=== PATIENT | female | born 1965 | race Caucasian/White ===

== ENCOUNTER 2020-08-11 15:25 | Outpatient (CLI) | payer BC, SELFPAY ==
--- NOTE | ~2020-08-11 | MM_ITS ---
EXAMINATION: MM screening carlitos BI w vinay HISTORY: Screening TECHNIQUE: Craniocaudal and mediolateral oblique 3-D tomosynthesis images were obtained and synthetic 2-D images were generated. CAD analysis was submitted and interpreted. COMPARISON: Comparison to multiple prior studies sequentially, with oldest reviewed study dated 09/09. BREAST PARENCHYMAL COMPOSITION: There are scattered areas of fibroglandular density. FINDINGS: There is no evidence of suspicious mass, calcification, or architectural distortion to sugg est malignancy in either breast. There has been no suspicious interval change. IMPRESSION: 1. No mammographic evidence of malignancy. 2. Recommend routine screening mammography in one year. BI-RADS Category 1: Negative Reviewed, dictated and finalized at location A. CAL CLERICAL ASSISTANT
== END 2020-08-11 15:26 | disposition home or self-care (01) ==
PROVIDERS: PCP Family Medicine
DX: Z12.31 Encounter for screening mammogram for malignant neoplasm of breast (principal)
CPT/HCPCS: 77063; 77067

== ENCOUNTER 2020-08-22 00:53 | Outpatient (CLI) | payer BC, SELFPAY ==
[2020-08-22 21:18] LABS: SARS-CoV-2 RNA PCR Negative
== END 2020-08-22 00:54 | disposition home or self-care (01) ==
LOC: ANHCOVIDDT 00:53
PROVIDERS: PCP Family Medicine; Visit Provider Internal Medicine Gastroenterology
DX: Z01.812 Encounter for preprocedural laboratory examination (principal); Z20.828 Contact with and (suspected) exposure to other viral communicable diseases
CPT/HCPCS: 87635; C9803; U0003

== ENCOUNTER 2020-08-25 01:06 | Day surgery (SDC) | payer BC, SELFPAY ==
[2020-08-19 13:05] VITALS: BMI 42.0
--- NOTE | 2020-08-24 11:47 | P.PNAN_ITS ---
Anes - Initial Pre Proc Eval Procedure: Operation Date: 08/25/20 07:30 Proposed Procedures p Screening Colonoscopy - Watson Pablo MD Date/Time: 08/24/20 11:47 Surgeon: Watson Pablo MD Pre Op Diagnosis: neoplasm screening Patient Data Age: 55 Gender: F Height: 1.68 m Weight: 118 kg Allergies Allergy/AdvReac Type Severity Reaction Status Date / Time codeine AdvReac Nausea Verified 08/25/20 06:23 Home Medications Medication Instructions Recorded Confirmed Type levothyroxine 112 mcg PO DAILY 08/19/20 08/19/20 History Patient hx anesthesia problems: none Family hx anesthesia problems: none [facility] Past Medical History Medical History (Updated 08/24/20 @ 11:47 by Norbert Moe DO) Hypothyroidism Surgical History Surgical History (Updated 08/24/20 @ 11:47 by Norbert Moe DO) History of tubal ligation Social History Social History Smoking status: Never smoker Alcohol intake: never Substance use type: does not use Living arrangements: with family Gender identity (if verbalized by the patient): Female Spiritual care concerns: No Anes - Eval Final PreProcedure Day of Procedure 08/24/20 11:47 Patient weight: morbidly obese Heart: regular rate and rhythm Lungs: clear to auscultation and normal air movement Airway: Mallampati scale class II Neurological: alert and oriented Last oral intake: >/= 8 hours ASA classification: III Emergent: no Anesthetic plan: proceed Anesthesia type and monitoring: general GIVS and standard monitoring Informed Consent: The patient's anesthetic plan and its attendant risks and benefits were discussed with the patient/family/POA. Questions were solicited and answers provided to the satisfaction of the patient/family/POA.
[2020-08-25 06:25] VITALS: BP 136/78; PULSE 84; RESP 20; TEMP 36.5; O2SAT 97; BMI 41.6
[2020-08-25] MEDS: LACTATED RINGERS 1,000 ML 150 ML IV CONT (06:39)
--- NOTE | 2020-08-25 07:47 | P.CONGI_ITS ---
Assessment and Plan Assessment and plan (1) Encounter for screening colonoscopy: Code(s): Z12.11 - Encounter for screening for malignant neoplasm of colon Status: Acute Assessment and Plan: Patient has never had a colonoscopy. She presents for screening colonoscopy today. Because of her tendency to constipation fiber supplement such as Metamucil is advised. GI Consult Note Consult date/time: 08/25/20 07:47 HPI: Yani Singh is a 55 year old female Presents for screening col onoscopy. Patient followed by Dr. Hall. Patient denies any bleeding. She reports a tendency to constipation. She has had no blood in her stools are appetite and weight have remained stable. Family history is noncontributory. Review of Systems Review of Systems: All systems reviewed & are unremarkable except as noted in HPI and below PMFSH Past Medical History Medical History (Updated 08/25/20 @ 07:48 by Watson Pablo MD) Hypothyroidism Surgical History Surgical History (Updated 08/24/20 @ 11:47 by Norbert Moe DO) History of tubal ligation Social History Social History Smoking status: Never smoker Alcohol intake: never Substance use type: does not use Living arrangements: with family Gender identity (if verbalized by the patient): Female Spiritual care concerns: No Meds Home Medications and Allergies Home Medications Medication Instructions Recorded Confirmed Type levothyroxine 112 mcg PO DAILY 08/19/20 08/19/20 History Allergies Allergy/AdvReac Type Severity Reaction Status Date / Time codeine AdvReac Nausea Verified 08/25/20 06:23 Vital Signs Vital Signs - 24 hr 08/25/20 06:25 Temperature 97.7 F Pulse Rate 84 Respiratory Rate 20 Blood Pressure 136/78 Pulse Oximetry 97 Exam Narrative: Exam Narrative: Physical exam reveals patient to be alert. Vital signs stable. HEENT exam unremarkable. Patient is anicteric. Lungs are clear to auscultation and percussion. Heart is without murmur or extra sounds. Abdominal exam bowel sounds are present soft nontender with no organomegaly. Digital external rectal exam is normal.
[2020-08-25 07:51] VITALS: BP 100/60; PULSE 67; RESP 22; O2SAT 98
[2020-08-25 08:01] VITALS: BP 115/76; PULSE 69; RESP 24; O2SAT 100
[2020-08-25 08:11] VITALS: BP 123/77; PULSE 63; RESP 20; O2SAT 100
== END 2020-08-25 08:28 | disposition home or self-care (01) ==
PROVIDERS: PCP Family Medicine; Visit Provider Internal Medicine Gastroenterology
PROC: 0DJD8ZZ Inspection of Lower Intestinal Tract, Via Natural or Artificial Opening Endoscopic (ICD-10-PCS; CPT 45378; principal; 2020-08-25 07:30)
DX: Z12.11 Encounter for screening for malignant neoplasm of colon (principal); K64.8 Other hemorrhoids; E03.9 Hypothyroidism, unspecified; E66.01 Morbid (severe) obesity due to excess calories; Z68.41 Body mass index [BMI] 40.0-44.9, adult
CPT/HCPCS: 45378; J2704; J7120

== ENCOUNTER 2021-07-04 11:29 | Emergency (ER) | payer BC, SELFPAY ==
[2021-07-04] VITALS (13 sets, daily range): BP systolic 106–140; BP diastolic 67–81; PULSE 58–74; RESP 12–23; TEMP 37; O2SAT 62–100
--- NOTE | ~2021-07-04 | US_ITS ---
EXAMINATION: US pelvic complete w TV EXAM DATE: 07/04/2021 13:33 INDICATION: Abnormal uterine bleeding. TECHNIQUE: Pelvic transabdominal and transvaginal sonogram was performed. There are multiple graysca le and Doppler images available for interpretation. There is no prior study for comparison. FINDINGS: Uterus measures 7.4 x 4.9 x 4.0 cm, and is morphologically normal. Endometrial stripe fay sures 5 mm, within normal limits. There is a nabothian cyst. There is no free pelvic fluid. Right adnexa: The ovary measures 2.2 x 1.8 x 1.3 cm and is morphologically normal. Ovarian vascular f low confirmed. Left adnexa: The ovary measures 2.2 x 1.5 x 1.2 cm and is morphologically normal. Ovarian vascular fl ow confirmed. IMPRESSION: Unremarkable pelvic ultrasound exam. Reviewed, dictated and finalized at location A.
[2021-07-04 11:54] LABS: Basophils Percent Auto 0.5 % (0.2-1.2); Eosinophils Absolute Auto 0.1 K/mm3 (0-0.3); Eosinophils Percent Auto 0.7 % (0-4.4); Hematocrit 39.2 % (37.0-47.0); Hemoglobin 12.6 g/dL (12.0-15.0); Immature Granulocyte Absolute 0.02 K/mm3 (0.00-0.031); Immature Granulocyte Percent A 0.2 % (0-0.5); Lymphocytes Absolute Auto 1.83 K/mm3 (0.9-3.2); Lymphocytes Percent Auto 20.9 % (18.3-44.2); Mean Corpuscular HGB Conc 32.1 g/dl (32-36); Mean Corpuscular Hemoglobin 30.1 pg (26-34); Mean Corpuscular Volume 93.6 fl (80-100); Mean Platelet Volume 10.3 fl (7.4-10.4); Monocytes Absolute Auto 0.7 K/mm3 (0.1-0.6); Monocytes Percent Auto 7.4 % (2.6-8.5); Neutrophils Absolute Auto 6.2 K/mm3 (1.3-6.7); Neutrophils Percent Auto 70.3 % (45.5-73.1); Platelet Count Result 248 k/mm3 (150-375); Red Blood Count 4.19 M/mm3 (4.2-5.4); Red Cell Distribution Width 14.7 % (11.5-14.5); White Blood Count 8.8 K/mm3 (4.5-10.0)
[2021-07-04 12:05] LABS: Alanine Aminotransferase 14 U/L (4-35); Albumin Level 4.7 g/dL (3.5-5.1); Alkaline Phosphatase 88 U/L (38-126); Anion Gap 11 mmol/L (8-16); Aspartate Amino Transferase 29 U/L (14-36); Blood Urea Nitrogen 14 mg/dL (7-17); Calcium 9.8 mg/dL (8.4-10.2); Carbon Dioxide 25 mmol/L (22-30); Chloride 105 mmol/L (98-107); Estimated CRCL calculation 65 ml/min; Estimated Glomerular Filt Rate > 60; Glucose 91 mg/dL (65-110); Potassium 4.5 mmol/L (3.4-5.0); Sodium 141 mmol/L (137-145)
--- NOTE | 2021-07-04 12:31 | ED.FEMALEGU ---
HPI - Female Genitourinary General Chief complaint: Vaginal Bleeding <FRIDA Carroll Last Filed: 07/04/21 15:24> Stated complaint: vaginal bleeding <FRIDA Carroll Last Filed: 07/04/21 15:24> Time Seen by Provider: 07/04/21 12:09 <FRIDA Carroll Last Filed: 07/04/21 15:24> Source: patient <FRIDA Carroll Last Filed: 07/04/21 15:24> Mode of arrival: ambulatory <FRIDA Carroll Last Filed: 07/04/21 15:24> Limitations: no limitations <FRIDA Carroll Last Filed: 07/04/21 15:24> History of Present Illness HPI Narrative: This is a 56-year-old female that presents to the emergency department for abnormal uterine bleeding. Reports she is currently in menopause. She has not had a menstrual cycle in 3 years. Today she was at the grocery store and suddenly felt a gush of blood go down her leg. Denies fever, dysuria, or pelvic cramping. <FRIDA Carroll Last Filed: 07/04/21 15:24> Related Data Home medications: Home Medications Medication Instructions Recorded Confirmed cholecalciferol (vitamin D3) 125 125 mcg PO DAILY 01/26/21 mcg (5,000 unit) capsule <FRIDA Carroll Last Filed: 07/04/21 15:24> Allergies/Adverse reactions: Allergies Allergy/AdvReac Type Severity Reaction Status Date / Time codeine AdvReac Severe Nausea Verified 01/20/21 12:36 <FRIDA Carroll Last Filed: 07/04/21 15:24> Review of Systems Review of Systems: CONSTITUTIONAL: Denies fever GASTROINTESTINAL: Denies abdominal pain, nausea, vomiting <FRIDA Carroll Last Filed: 07/04/21 15:24> All systems reviewed & are unremarkable except as noted in HPI and below <FRIDA Carroll Last Filed: 07/04/21 15:24> PMFSH Past Medical History Medical History: Medical History (Updated 07/04/21 @ 15:23 by Carmita Bustillo PA-C) Hypothyroidism <Carmita Bustillo PA-C - Last Filed: 07/04/21 15:24> Surgical History Surgical History: Surgical History (Updated 08/24/20 @ 11:47 by Norbert Moe DO) History of tubal ligation <Carmita Bustillo PA-C - Last Filed: 07/04/21 15:24> Family History Family History: Family History (Updated 01/20/21 @ 12:44 by Kait Little MA) Father Diabetes mellitus Daughter Asthma Daughter Depression Anxiety <Carmita Bustillo PA-C - Last Filed: 07/04/21 15:24> Social History Social History: Social History (Updated 01/20/21 @ 12:41 by Kait Little MA) Smoking status: Never smoker Second hand tobacco smoke exposure: No Alcohol intake: never Substance use type: does not use Gender identity (if verbalized by the patient): Female Spiritual care concerns: No <Carmita Bustillo PA-C - Last Filed: 07/04/21 15:24> Exam Narrative: GENERAL: Well-appearing, well-nourished, and in no acute distress. HEAD: Normocephalic, atraumatic. EYES: EOMI. CHEST: Clear to auscultation. No respiratory distress. No wheezes rales or rhonchi HEART: Regular rate and rhythm. No murmur heard. Normal peripheral pulses. ABDOMEN: Soft, nondistended EXTREMITIES: Normal range of motion. No edema. SKIN: Warm, dry, no rash. NEURO: No focal deficits. Alert and oriented x3. PSYCH: Normal mood and affect PELVIC: No active bleeding. Small (1cm) polyp-like lesion of the cervical os noted <Carmita Bustillo PA-C - Last Filed: 07/04/21 15:24> Course AIRPLANE TUBE BUILDER/PA Physician Supervision I did not see this patient nor was the care plan discussed with me. I was available for evaluation and consultation, I agree with the documentation as above <Abraham Saavedra MD - Last Filed: 09/26/21 17:27> Consultations Consultation #1: Spoke with Dr. Larsen about patient and workup who would like patient to call in the morning to see him in clinic tomorrow. <Carmita Bustillo PA-C - Last Filed: 07/04/21 15:24> Date: 07/04/21 <Carmita Bustillo PA-C - Last Brenden
== END 2021-07-04 15:37 | disposition home or self-care (01) ==
PROVIDERS: Emergency Provider Emergency Medicine; PCP Internal Medicine
DX: N93.9 Abnormal uterine and vaginal bleeding, unspecified (principal); E03.9 Hypothyroidism, unspecified; Z98.51 Tubal ligation status
CPT/HCPCS: 36415; 76830; 76856; 80053; 85025; 86850; 86900; 86901; 99284

== ENCOUNTER 2021-07-04 17:40 | Emergency (ER) | payer BC, SELFPAY ==
[2021-07-04 18:26] VITALS: BP 121/72; PULSE 78; RESP 16; TEMP 37.1; O2SAT 99
[2021-07-04 18:45] LABS: Basophils Percent Auto 0.5 % (0.2-1.2); Eosinophils Absolute Auto 0.1 K/mm3 (0-0.3); Eosinophils Percent Auto 0.8 % (0-4.4); Hematocrit 38.1 % (37.0-47.0); Hemoglobin 12.2 g/dL (12.0-15.0); Immature Granulocyte Absolute 0.01 K/mm3 (0.00-0.031); Immature Granulocyte Percent A 0.1 % (0-0.5); Lymphocytes Absolute Auto 2.11 K/mm3 (0.9-3.2); Lymphocytes Percent Auto 27.8 % (18.3-44.2); Mean Corpuscular Hemoglobin 29.8 pg (26-34); Mean Corpuscular Volume 92.9 fl (80-100); Monocytes Absolute Auto 0.6 K/mm3 (0.1-0.6); Monocytes Percent Auto 7.4 % (2.6-8.5); Neutrophils Absolute Auto 4.8 K/mm3 (1.3-6.7); Neutrophils Percent Auto 63.4 % (45.5-73.1); Platelet Count Result 242 k/mm3 (150-375); Red Cell Distribution Width 14.6 % (11.5-14.5); White Blood Count 7.6 K/mm3 (4.5-10.0)
[2021-07-04 20:47] LABS: Prothrombin Time 13.2 Seconds (11.1-14.7)
[2021-07-04 22:55] VITALS: BP 130/81; PULSE 61; RESP 16; O2SAT 100
[2021-07-05 00:37] VITALS: BP 125/69; PULSE 57; RESP 13; O2SAT 100
--- NOTE | 2021-07-05 01:07 | ED.GENADULT ---
HPI - General Adult General Chief complaint: Vaginal Bleeding Stated complaint: recently discharged, bleeding again Time Seen by Provider: 07/04/21 23:46 History of Present Illness HPI narrative: Patient is a 56-year-old female who presents ER with bleeding from her vagina. More specifically her left labia. Patient was seen earlier in the day for vaginal bleeding and had a pelvic exam and ultrasound. She was discharged home with follow-up with her campaign director. Mobility Engineer wanted her to keep a tampon in her vagina to saturate any bleeding and he would see her in clinic tomorrow. While she is in the shower cleaning herself up she started bleeding again and she notices actually coming from the external portion of her vagina. Bleeding controlled at this time. No loss of consciousness. She is not on any blood thinners. Related Data Home Medications Medication Instructions Recorded Confirmed cholecalciferol (vitamin D3) 125 125 mcg PO DAILY 01/26/21 mcg (5,000 unit) capsule Allergies Allergy/AdvReac Type Severity Reaction Status Date / Time codeine AdvReac Severe Nausea Verified 01/20/21 12:36 Review of Systems Review of Systems: All systems reviewed & are unremarkable except as noted in HPI and below Constitutional: Constitutional: Denies chills, Denies fever(s) and Denies weakness Genitourinary: Genitourinary: Denies abnormal vaginal bleeding, Denies pelvic pain and Denies vaginal discharge Integumentary/Breasts: Skin/Breast: Denies rash Comments: Bleeding varicose vein. PMFSH Past Medical History Medical History (Updated 07/05/21 @ 01:11 by Anival Faust MD) Hypothyroidism Surgical History Surgical History (Updated 08/24/20 @ 11:47 by Norbert Moe DO) History of tubal ligation Family History Family History (Updated 01/20/21 @ 12:44 by Kait Little MA) Father Diabetes mellitus Daughter Asthma Daughter Depression Anxiety Social History Social History (Updated 01/20/21 @ 12:41 by Kait Little MA) Smoking status: Never smoker Second hand tobacco smoke exposure: No Alcohol intake: never Substance use type: does not use Gender identity (if verbalized by the patient): Female Spiritual care concerns: No Exam Narrative: GENERAL: Well-appearing, well-nourished, and in no acute distress. HEAD: Normocephalic, atraumatic. : Normal external genitalia without rash. Left labia does have a small area of previous bleeding that appears to be varicose vein. It is dark in clotting at this time. EXTREMITIES: Normal range of motion. No edema. SKIN: Warm, dry, no rash. NEURO: Alert and oriented x3. PSYCH: Normal mood and affect. Course Course Emergency Course: Pursestring suture placed around the area of bleeding to help with additional tamponade and prevent recurrence. Follow-up with her INTERMEDIATE FRAME TENDER tomorrow. Vital Signs Vital signs: Vital Signs Temperature 98.8 F 07/04/21 18:26 Pulse Rate 78 07/04/21 18:26 Respiratory Rate 16 07/04/21 18:26 Blood Pressure 121/72 07/04/21 18:26 Pulse Oximetry 99 07/04/21 18:26 Temperature 98.8 F 07/04/21 18:26 Pulse Rate 57 L 07/05/21 00:37 Respiratory Rate 13 07/05/21 00:37 Blood Pressure 125/69 07/05/21 00:37 Pulse Oximetry 100 07/05/21 00:37 Procedures Laceration Laceration 1: Date: 07/05/21 Time: 01:00 Site: other (Left labia) Description: other (Site of varicose vein bleed) Local Anesthetic: lidocaine 1% and with epi Amount of anesthesia used (mL): 2 ====== Skin Level ====== Skin layer closed with: prolene Size (cm): 4-0 Number of sutures: 1 Technique: other (Purse string) ====== Subcutaneous Layer ====== ====== Muscle Layer ====== ====== Tendon Layer ====== Medical Decision Making Vital Signs Vital Signs: Vital Signs Temperature 98.8 F 07/04/21 18:26 Pulse Rate 78 07/04/21 18
[2021-07-05] MEDS: LIDO 1%/EPINEPHRINE 1:100,000 20 ML VIAL (01:13)
== END 2021-07-05 02:08 | disposition home or self-care (01) ==
PROVIDERS: Physician Assistant; Emergency Provider Emergency Medicine; PCP Internal Medicine
DX: I86.3 Vulval varices (principal); E03.9 Hypothyroidism, unspecified; Z98.51 Tubal ligation status
CPT/HCPCS: 12001; 36415; 85025; 85610; 85730; 99283

== ENCOUNTER 2021-09-24 15:04 | Outpatient (CLI) | payer BC, SELFPAY ==
--- NOTE | ~2021-09-24 | MM_ITS ---
EXAMINATION: MM screening carlitos BI w vinay HISTORY: Screening TECHNIQUE: Craniocaudal and mediolateral oblique 3-D tomosynthesis images were obtained and synthetic 2-D images were generated. CAD analysis was submitted and interpreted. COMPARISON: Comparison to multiple prior studies sequentially, with oldest reviewed study dated 11/01. BREAST PARENCHYMAL COMPOSITION: There are scattered areas of fibroglandular density. FINDINGS: There is no evidence of suspicious mass, calcification, or architectural distortion to sugg est malignancy in either breast. There has been no suspicious interval change. IMPRESSION: 1. No mammographic evidence of malignancy. 2. Recommend routine screening mammography in one year. BI-RADS Category 1: Negative Reviewed, dictated and finalized at location A. CHING MACHINE SETTER
== END 2021-09-24 15:05 | disposition home or self-care (01) ==
PROVIDERS: PCP Internal Medicine; Visit Provider Obstetrics & Gynecology
DX: Z12.31 Encounter for screening mammogram for malignant neoplasm of breast (principal)
CPT/HCPCS: 77063; 77067

== ENCOUNTER 2022-09-26 15:08 | Outpatient (CLI) | payer BC, SELFPAY ==
--- NOTE | ~2022-09-26 | US_ITS ---
Limited Abdominal Sonogram: Real-time sonographic imaging of the right upper quadrant was performed. Clinical History: Right upper quadrant pain Findings: The liver appears normal with no evidence of mass lesion or bile duct dilatation. Main por wilfredo vein demonstrates normal direction of flow. The gallbladder is partially distended, with small ga llstone present. The common bile duct measures 6 mm. The visualized pancreas, aorta, and IVC are unr emarkable. Impression: Cholelithiasis. Reviewed, dictated and finalized at location M. ANICAL DESIGN ENGINEER FACILITIES Impression: Cholelithiasis.
== END 2022-09-26 15:09 | disposition home or self-care (01) ==
PROVIDERS: PCP Internal Medicine; Visit Provider Internal Medicine
DX: R10.11 Right upper quadrant pain (principal); K80.20 Calculus of gallbladder without cholecystitis without obstruction
CPT/HCPCS: 76705

== ENCOUNTER 2022-10-28 15:23 | Outpatient (CLI) | payer BC, SELFPAY ==
--- NOTE | 2022-10-28 15:26 | ECG_ITS ---
Measurements Intervals [place] Rate: 68 P: 40 AR: 149 QRS: -7 QRSD: 87 T: 14 QT: 378 QTc: 403 Interpretive Statements SINUS RHYTHM DELAYED PRECORDIAL R/S TRANSITION BASELINE ARTIFACT- I, II, III, AVR, AVL, AVF, V1-V6 BORDERLINE ECG NO PREVIOUS ECG AVAILABLE FOR COMPARISON Electronically Signed On 10-28-2022 16:04:18 STUDENT DEVELOPMENT SPECIALIST by Noah Anand D.O.
[2022-10-28 16:24] LABS: Alanine Aminotransferase 17 U/L (6-35); Albumin Level 4.1 g/dL (3.5-5.1); Alkaline Phosphatase 76 U/L (38-126); Amylase 43 U/L (30-110); Aspartate Amino Transferase 21 U/L (14-36); Bilirubin,Total 0.6 mg/dL (0.2-1.3); Lipase 97 U/L (23-300)
== END 2022-10-28 15:24 | disposition home or self-care (01) ==
PROVIDERS: PCP Internal Medicine; Visit Provider Surgery
DX: K80.20 Calculus of gallbladder without cholecystitis without obstruction (principal); Z01.818 Encounter for other preprocedural examination; R94.31 Abnormal electrocardiogram [ECG] [EKG]
CPT/HCPCS: 36415; 80076; 82150; 83690; 86850; 86900; 86901; 93005

== ENCOUNTER 2022-11-04 03:34 | Day surgery (SDC) | payer BC, SELFPAY ==
[2022-10-27 10:58] VITALS: BMI 32.3
--- NOTE | 2022-10-27 11:04 | PC.NURSE ---
Report to the Outpatient Waiting Room, entrance under the green pavilion located off [facility], at time 11:30 on date 11/04/22. Planned Procedure Time: 1:30. Time changes happen often and if your time is changed the preop area will call you the afternoon before. - You and your visitor will be asked to self-screen and do not enter if you have any COVID symptoms. - Only one visitor is requested with a max of two and NO children visitors are allowed at this time. - The patient visitor may be requested to leave or wait in car when not with patient due to distancing restrictions. - A mask is optional within the hospital. Patients may have clear liquids (water, carbonated beverages, clear teas, apple juice) until 3 hours prior to surgery (10:30) with a maximum of 20 ounces. - No food from midnight until time of surgery Take the following medications with a SIP of water the morning of surgery: LEVOTHYROXINE Medications to discontinue per physician: VITAMINS Date to take last dose: 10/31/22 Please no make-up, nail serbian, hairspray, perfume, deodorant, or body powder the day of surgery. No jewelry (including any body piercings) or valuables the day of surgery, leave them at home. Please take a shower or bath the night before, or the morning of, surgery with an antibacterial soap (HIBICLENS). Wear comfortable, loose fitting clothing. - Jewelry must be removed prior to entering the operating room. Rings and piercings that are not removed may be cut off. - The hospital will not accept responsibility for valuables. - Please leave all valuables, including medications, at home the day of surgery. If you are going home after surgery, a licensed parts delivery driver must drive you home. - NO public transportation without another adult if you receive anesthesia. - We recommend that an adult stay with you for 24 hours following discharge. - We also recommend that you do not drive, make important decision, drink alcoholic beverages, or take any drugs that were not prescribed by your health care provider for at least 24 hours after your discharge time. Follow any additional instructions given to you from your surgeon. If you or anyone in your household have experienced Covid symptoms in the past week, please notify your surgeon or the nurse liaison at the phone number below for possible testing. Telephone instructions given to PT - ALLEGRA GARCIA and asked if any additional questions and then verbalized understanding. Patient advised to call surgeon office or pre surgery nurse liaison [phone] if any additional questions.
--- NOTE | 2022-11-03 13:55 | P.PNAN_ITS ---
Anes - Initial Pre Proc Eval Procedure: Operation Date: 11/04/22 13:30 Proposed Procedures p Laparoscopic Cholecystectomy, Possible Open - Kevin Fontanez DO Date/Time: 11/03/22 13:55 Surgeon: Kevin Fontanez DO Pre Op Diagnosis: Symptomatic Cholelithiasis Patient Data Age: 57 Gender: F Height: 1.68 m Weight: 90.72 kg Allergies Allergy/AdvReac Type Severity Reaction Status Date / Time codeine AdvReac Severe Nausea Verified 11/04/22 12:45 Home Medications Medication Instructions Recorded Confirmed Type cholecalciferol (vitamin D3) 125 125 mcg PO DAILY 01/26/21 11/04/22 History mcg (5,000 unit) capsule levothyroxine 100 mcg tablet 100 mcg PO DAILY #90 tabs 08/16/22 11/04/22 Rx Patient hx anesthesia problems: none Family hx anesthesia problems: none Results Review: All pre-operative results and documents have been reviewed as part of the pre- operative evaluation. PMFSH Past Medical History Medical History (Updated 11/03/22 @ 13:56 by Douglas Cee MD) Hypothyroidism Obesity Surgical History Surgical History (Updated 10/04/22 @ 10:04 by Jennifer Cee) H/O knee surgery History of endometrial ablation History of tubal ligation Scapular fracture Family History Family History Father Diabetes mellitus Daughter Asthma Daughter Depression Anxiety Unknown Heart disease Unknown Cancer Social History Social History (Updated 10/04/22 @ 10:05 by Jennifer Cee) Social History: caffeine use: Dr Ramos occasionally Smoking status: Never smoker Second hand tobacco smoke exposure: No Alcohol intake: never Substance use: never Substance use type: does not use Lack of Transportation: No Lack of Food: Never True Current Housing: I Have Housing Concerned About Future Housing: No Difficulty Paying Gas/Electric Bills: No Difficulty Paying for Meds: No Currently Unemployed: No Education: High School Diploma/GED Difficulty w/ Childcare or Family Care: No Living arrangements: with family Occupation/Education: other 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 Informed Consent: The patient's anesthetic plan and its attendant risks and benefits were discussed with the patient/family/POA. Questions were solicited and answers provided to the satisfaction of the patient/family/POA.
[2022-11-04] VITALS (9 sets, daily range): BP systolic 93–136; BP diastolic 54–75; PULSE 50–78; RESP 14–18; TEMP 36.6–37.2; O2SAT 96–100
--- NOTE | 2022-11-04 12:36 | SUR.PREOP ---
PATIENT UPDATED ON TIME DELAY
[2022-11-04] MEDS: LACTATED RINGERS 1,000 ML 30 ML IV CONT (12:55)
[2022-11-04] MEDS: ACETAMINOPHEN 500 MG TABLET 1000 MG PO (12:56)
[2022-11-04] MEDS: KETOROLAC 15 MG/ML VIAL (*BKC) IV PUSH (12:57)
[2022-11-04] MEDS: SCOPOLAMINE 1.5 MG PATCH TRANSDERM (13:16)
--- NOTE | 2022-11-04 14:03 | WPDHPUPDATE1 ---
History and Physical Update Update Date/Time: 11/04/22 14:03 History and Physical has been reviewed, including an updated exam of the patient. There are NO changes in the patient's condition. Risks, benefits, and alternatives have been discussed and questions answered. Patient agrees to proceed with procedure.
--- NOTE | 2022-11-04 14:03 | PM.IMHP ---
H&P: HPI History of Present Illness Date/Time: 11/04/22 14:04 Chief Complaint: Symptomatic cholelithiasis Narrative: This is a 57-year-old woman who presents for laparoscopic cholecystectomy. She denies any changes since last seen in the office. Review of Systems Review of Systems: All systems reviewed & are unremarkable except as noted in HPI and below Constitutional: Constitutional: Denies chills, Denies fever(s), Denies headache(s) and Denies weight loss Eyes: Eyes: Denies change in vision ENT: Denies dizziness, Denies headache(s), Denies neck mass and Denies throat swelling Cardiovascular: Cardiovascular: Denies chest pain, Denies lightheadedness and Denies dyspnea Respiratory: Respiratory: Denies cough, Denies dyspnea and Denies wheezing Gastrointestinal: Gastrointestinal: Denies abdominal pain, Denies change in bowel habits, Denies nausea and Denies vomiting Genitourinary: Genitourinary: Denies hematuria and Denies dysuria Musculoskeletal: Musculoskeletal: Reports as per HPI Integumentary/Breasts: Skin/Breast: Reports as per HPI Neurologic: Denies dizziness and Denies headache(s) Allergic/Immunologic: Allergic/Immunologic: Denies throat swelling and Denies wheezing PMFSH Past Medical History Medical History (Updated 11/03/22 @ 13:56 by Douglas Cee MD) Hypothyroidism Obesity Surgical History Surgical History (Updated 10/04/22 @ 10:04 by Jennifer Cee) H/O knee surgery History of endometrial ablation History of tubal ligation Scapular fracture Family History Family History Father Diabetes mellitus Daughter Asthma Daughter Depression Anxiety Unknown Heart disease Unknown Cancer Social History Social History (Updated 10/04/22 @ 10:05 by Jennifer Cee) Social History: caffeine use: Dr Ramos occasionally Smoking status: Never smoker Second hand tobacco smoke exposure: No Alcohol intake: never Substance use: never Substance use type: does not use Lack of Transportation: No Lack of Food: Never True Current Housing: I Have Housing Concerned About Future Housing: No Difficulty Paying Gas/Electric Bills: No Difficulty Paying for Meds: No Currently Unemployed: No Education: High School Diploma/GED Difficulty w/ Childcare or Family Care: No Living arrangements: with family Occupation/Education: other 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 Gender identity (if verbalized by the patient): Female Spiritual care concerns: No Meds Home Medications and Allergies Home Medications Medication Instructions Recorded Confirmed Type cholecalciferol (vitamin D3) 125 125 mcg PO DAILY 01/26/21 11/04/22 History mcg (5,000 unit) capsule levothyroxine 100 mcg tablet 100 mcg PO DAILY #90 tabs 08/16/22 11/04/22 Rx Allergies Allergy/AdvReac Type Severity Reaction Status Date / Time codeine AdvReac Severe Nausea Verified 11/04/22 12:45 Vital Signs Vital Signs - 24 hr 11/04/22 11:50 Temperature 37.2 C Pulse Rate 77 Respiratory Rate 14 Blood Pressure 116/74 Pulse Oximetry 99 Oxygen Delivery Room Air Exam Const: General: no acute distress and alert Orientation/consciousness: patient oriented x3 HENMT: Head: normocephalic and atraumatic Ears: hearing grossly normal bilaterally Face/Nose/Sinus: Normal nares present Mouth: Yes Normal oral and palatal mucosa present Eyes: Periorbital: periorbital findings normal Sclera: sclerae normal EOM: EOMs intact bilaterally Neck: Neck: normal visual inspection, no lymphadenopathy and trachea midline Chest: Chest palpation & inspection: normal inspection of the chest Resp: Effort & Inspection: normal respiratory effort Auscultation: clear to auscultation bilaterally Cardio: Jugular venous distension: no JVD Rate: regular rate Rhythm: regular rhythm Heart sounds: S1 normal heart sound present and S2 norm
[2022-11-04] MEDS: ceFAZolin 2 GM/D5W 50 ML 2 GM/50 ML BAG IVPB (14:19)
[2022-11-04] MEDS: BUPIVACAINE/EPINEPHRINE 0.5% 30 ML VIAL INFILTRATE (14:47)
--- NOTE | 2022-11-04 15:10 | W.PM.PROC2 ---
Procedure Note - Detailed Date of Procedure 11/04/22 Pre-op Diagnosis Symptomatic Cholelithiasis Post-op Diagnosis Same Procedure Performed Laparoscopic Cholecystectomy Surgeon Kevin Fontanez, DO Anesthesia General and Local (0.5% bupivacaine) Indications This is a 57-year-old woman has been experiencing right upper quadrant abdominal pains for the past month. She had ultrasound of her gallbladder performed on 09/26/2022 which showed evidence of cholelithiasis without any signs of cholecystitis. She was seen in the office and discussions were made with the patient about treatment options. Decision was made to proceed with laparoscopic cholecystectomy, possible open. Findings Laparoscopic cholecystectomy was performed. Gallbladder was slightly dilated and elongated and had a few pericholecystic adhesions. The cystic duct appeared normal in size. No other abnormalities were noted. The gallbladder was removed and sent to the lab for pathology. Description of Procedure Procedure as well as risks, benefits, and alternatives were discussed with patient. Written consent was obtained and placed in chart prior to procedure. The patient was brought back to surgical suite. Patient was placed in supine position on operating table. Time-out was done to confirm patient and procedure. Patient was then intubated by the anesthesia department. Abdomen was prepped and draped in sterile fashion using chlorhexidine prep. 0.5% bupivacaine with epinephrine was infiltrated at each site of incision. A 5 millimeter incision was made near the umbilicus, and a 5 millimeter Optiview trocar was advanced through the abdominal layers under direct visualization. Once inside the abdominal cavity, carbon dioxide was insufflated to create a pneumoperitoneum. The camera was inserted and the abdomen was inspected. No immediate abnormalities were identified. The patient was placed in reverse Trendelenburg position and rotated slightly to the left. An 11 millimeter incision was made in the subxiphoid region, and an 11 millimeter trocar was inserted under direct visualization. Two 5 millimeter incisions were made in the right upper quadrant, and two 5 millimeter trocars were inserted under direct visualization. The gallbladder was identified and grasped at the fundus and retracted superiorly. It was then grasped at the infundibulum retracted laterally. Careful dissection around the neck of the gallbladder was performed using blunt dissection with a [place] grasper and hook electrocautery. The cystic duct was identified, and a window was created behind it. The cystic artery was also identified and a window was created behind it. The critical view of safety was identified, visualizing the cystic duct running directly into the neck of the gallbladder, and the cystic artery running directly into the wall of the gallbladder. A 5 millimeter clip renewable energy trader was then used to place 2 clips proximally and 1 clip distally on both the cystic duct and cystic artery. They were then both transected using endoscopic scissors. Once safely away from the bradly hepatitis, the gallbladder was dissected free from the liver bed using hook electrocautery. Hemostasis was achieved along the way. The gallbladder was removed completely and then removed through the subxiphoid port. The liver bed was then inspected. Hemostasis appeared adequate, and our clips appeared secure. The area was gently irrigated with sterile saline. No other abnormalities were seen. The patient was flattened out in bed, and 1 final inspection was made around the abdominal cavity. The subxiphoid port was removed, and a Arturo Kaitlin cone was used to approximate the fascia with an 0-Vicryl simple interrupted suture. The remaining ports were then removed under direct visualization, the camera was removed, and the pneumoperitoneum was released. The skin of the incisions was approximated using 4-0 Monocryl subcuticular sutures. Ex
[2022-11-04] MEDS: fentaNYL CITRATE INJ (*CRX) 100 MCG/2 ML VIAL 25 MCG IV PUSH ×3 (15:46→16:16)
[2022-11-04] MEDS: ONDANSETRON INJ 4 MG/2 ML VIAL IV PUSH (16:09)
== END 2022-11-04 17:40 | disposition home or self-care (01) ==
PROVIDERS: PCP Internal Medicine; Visit Provider Surgery
PROC: 0FT44ZZ Resection of Gallbladder, Percutaneous Endoscopic Approach (ICD-10-PCS; CPT 47562; principal; 2022-11-04 13:30)
DX: K81.1 Chronic cholecystitis (principal); E03.9 Hypothyroidism, unspecified; E66.9 Obesity, unspecified; Z68.33 Body mass index [BMI] 33.0-33.9, adult
CPT/HCPCS: 47562; 88304; A9270; J0690; J1100; J1885; J2250; J2405; J2704; J2710; J3010; J7030; J7120

== ENCOUNTER 2022-11-29 16:17 | Outpatient (CLI) | payer BC, SELFPAY ==
--- NOTE | ~2022-11-29 | MM_ITS ---
EXAMINATION: MM screening carlitos BI w vinay HISTORY: Screening mammogram TECHNIQUE: Craniocaudal and mediolateral oblique 3-D tomosynthesis images were obtained and synthetic 2-D images were generated. CAD analysis was submitted and interpreted. COMPARISON: 09/24/2021, 1535 2019, 01/07/2019 bilateral screening mammogram examinations BREAST PARENCHYMAL COMPOSITION: There are scattered areas of fibroglandular density. FINDINGS: There is no evidence of suspicious mass, calcification, or architectural distortion to sugg est malignancy in either breast. There has been no suspicious interval change. IMPRESSION: 1. No mammographic evidence of malignancy. 2. Recommend routine screening mammography in one year. BI-RADS Category 1: Negative Reviewed, dictated and finalized at location A. WORKER
== END 2022-11-29 16:18 | disposition home or self-care (01) ==
PROVIDERS: PCP Internal Medicine
DX: Z12.31 Encounter for screening mammogram for malignant neoplasm of breast (principal)
CPT/HCPCS: 77063; 77067

== ENCOUNTER 2023-12-30 08:20 | Outpatient (CLI) | payer BC, SELFPAY ==
--- NOTE | ~2023-12-30 | MM_ITS ---
EXAMINATION: MM screening carlitos BI w vinay HISTORY: Screening mammogram TECHNIQUE: Craniocaudal and mediolateral oblique 3-D tomosynthesis images were obtained and synthetic 2-D images were generated. CAD analysis was submitted and interpreted. COMPARISON: November 29, 2022, September 24, 2021 bilateral screening mammogram examinations BREAST PARENCHYMAL COMPOSITION: There are scattered areas of fibroglandular density. FINDINGS: There is no evidence of suspicious mass, calcification, or architectural distortion to sugg est malignancy in either breast. There has been no suspicious interval change. IMPRESSION: 1. No mammographic evidence of malignancy. 2. Recommend routine screening mammography in one year. BI-RADS Category 1: Negative Reviewed, dictated and finalized at location A.
== END 2023-12-30 08:21 | disposition home or self-care (01) ==
PROVIDERS: PCP Nurse Practitioner Family
DX: Z12.31 Encounter for screening mammogram for malignant neoplasm of breast (principal)
CPT/HCPCS: 77063; 77067

== ENCOUNTER 2024-02-28 14:40 | Outpatient (CLI) | payer BC, SELFPAY ==
--- NOTE | ~2024-02-28 | XR_ITS ---
XR knee RT 3V DATE: 02/28/2024 14:55 INDICATION: Right knee pain TECHNIQUE: AP, lateral and sunrise views COMPARISON: None FINDINGS: No fracture or dislocation, periosteal reaction or bone destruction. Joint spaces are well preserved. No radiopaque intra-articular loose body or chondrocalcinosis. IMPRESSION: No significant abnormality Reviewed, dictated and finalized at location B. IMPRESSION: No significant abnormality
== END 2024-02-28 14:41 ==
PROVIDERS: PCP Nurse Practitioner Family; Visit Provider Nurse Practitioner Family
DX: M25.561 Pain in right knee (principal)
CPT/HCPCS: 73562

== ENCOUNTER 2024-03-12 14:44 | Outpatient (CLI) | payer BC, SELFPAY ==
--- NOTE | ~2024-03-12 | MR_ITS ---
MRI of the right knee Clinical history: Pain Technique: Coronal proton density and proton density-weighted images, sagittal proton-density and T2 fat-sat images, and axial proton-density fat-saturated images were acquired. Findings: Anterior and posterior cruciate ligaments are intact. Medial collateral ligament and the la teral collateral ligament complex are intact. Popliteus tendon is intact. There is intrasubstance degenerative signal of the posterior horn medial meniscus, without definite t ear. No definite lateral meniscal tear seen. There is high-grade chondromalacia the patellar apex extending along the lateral facet. There is patc hy mild to moderate chondral malacia the femoral trochlea. There is moderate chondral malacia the med ial joint line. Lateral compartment articular cartilage is relatively well-preserved. Extensor mechanism is intact. Small joint effusion and small Bunch's cyst are present. Impression: Degenerative change, as detailed above, overall mild to [id number] in degree. Small joint effusion and small Bunch's cyst. No definite meniscal tear. Reviewed, dictated and finalized at location . Impression: Degenerative change, as detailed above, overall mild to [id number] in deg ree. Small joint effusion and small Bunch's cyst. No definite meniscal tear.
== END 2024-03-12 14:45 ==
LOC: GOSHIMG 14:46
PROVIDERS: Visit Provider Nurse Practitioner Family
DX: M71.21 Synovial cyst of popliteal space [Baker], right knee (principal); M25.461 Effusion, right knee
CPT/HCPCS: 73721

== ENCOUNTER 2024-12-31 16:26 | Outpatient (CLI) | payer BC, SELFPAY ==
--- NOTE | ~2024-12-31 | MM_ITS ---
EXAMINATION: MM screening [facility] BI w vinay HISTORY: Screening TECHNIQUE: Craniocaudal and mediolateral oblique 3-D tomosynthesis images were obtained and synthetic 2-D images were generated. CAD analysis was submitted and interpreted. COMPARISON: 12/30/2023 and dating back to 08/11/2020 BREAST PARENCHYMAL COMPOSITION: There are scattered areas of fibroglandular density. FINDINGS: Punctate calcifications are detected bilaterally, stable and benign in appearance. Stable parenchymal pattern without suspicious microcalcifications, architectural distortion, discrete masses or significant asymmetry. IMPRESSION: 1. No mammographic evidence of malignancy. 2. Recommend routine screening mammography in one year. BI-RADS Category 2: Benign finding(s). Reviewed, dictated and finalized at location A.
--- OUTSIDE RECORDS SUMMARY | 2024-12-31 18:38 | XMS_ITS | Continuity of Care Document ---
Author Organization [facility] Address [address] [place] [address] Phone Care Team Providers Care Correspondence Specialist Name Role Phone Gus Reynoso DO Unavailable Unavailable Advance Directives Directive Yes / No Effective Date File Name No Information Encounters Encounter Description Practice Location Reason(s) For Visit Diagnoses Date Provider Providers Copied on Encounter [facility], [id number] [place] [address] [address], [place], [place], [id number], [place] tel:[phone] [facility] [place] Jamaal No Information Edgardo Bales. [address] [facility], [place], [address], [place]. tel: [phone] Family History Family Member Type Diagnosis Age At Onset No Information Payers Payer name Insurance type Covered constitution party ID Authoriza tion(s) [facility] Commercial [id number] Social History Type Description Quantity Date Captured Comments Sex Female Smoking Status No Information Chief Complaint And Reason For Visit No Information Reason For Referral Reason For Referral No Information History Of Present Illness Encounter Date Complaint History Of Prese nt Illness No Information Functional Status Date Functional Assessmen t No Information Instructions Date Instruction Additional Infor mation No Information Assessments Type Assessment Date No Information Patient Care Teams Name Effective Dates (start - stop) Status Members No Information
--- OUTSIDE RECORDS SUMMARY | 2024-12-31 18:38 | XMS_ITS | Clinical Summary ---
Author Organization [facility] Address [address] [place] [address] Care Team Providers Care Repack Room Worker Name Role Phone Deni Haskins MD Primary Care Provider [phone] Allergies Active Allergy Reactions Criticality Noted Date Comments Codeine Stomach upset Low 07/20/2010 Medications levothyroxine (SYNTHROID) 75 mcg tablet Take 1 tablet by mouth daily 07/02/2021 Active Active Problems Problem Noted Date Diagnosed Date Acquired hypothyroidism 08/25/2021 Assessment & Plan (09/15/2021 1:17 PM FILTERER): Followed by her PCP and controlled on Synthroid. Assessment & Plan (08/25/2021 10:07 AM FILTERER): Followed by her PCP and currently on Synthroid. Pelvic congestion syndrome 08/25/2021 Assessment & Plan (09/15/2021 1:17 PM FILTERER): Patient does not have any evidence of pelvic congestion syndrome on CT. Assessment & Plan (08/25/2021 10:07 AM FILTERER): Patient possibly has pelvic congestion syndrome with vulvar varicosities and the bleeding varix. Plan is for CT venogram of the abdomen and pelvis to determine if she has pelvic congestion syndrome. Vulvar varicose veins 08/25/2021 Assessment & Plan (09/15/2021 1:17 PM FILTERER): Patient does not have any enlarged volar varicosities at this time. I told her that likely the stitch that had been placed previously ligated the vein. She does not have any other varicosities at this time that need to be sclerosed. Assessment & Plan (08/25/2021 9:59 AM FILTERER): Patient does have all varicose veins as well as prior episode of bleeding from the veins. She is aware that they are there and says that she does not know if they were there prior to her weight loss are not as she did not have any issues with them before. Plan will be for a CT venogram of the abdomen pelvis to make sure she does not have pelvic congestion syndrome. If this is the case then she will likely need the varicose veins sclerosed otherwise if she has pelvic congestion syndrome she will need coiling of the gonadal veins. Immunizations Immunization Administration Dates Next Due Tdap 04/13/2021 Surgical History Surgery Date Site/Laterality Comments SHOULDER SURGERY 10/09/1990 - 10/08/1991 Right TUBAL LIGATION 10/09/2001 - 10/08/2002 Family History Medical History Relation Name Comments No Known Problems Brother No Known Problems Daughter Diabetes Father Heart disease Maternal Grandfather Heart disease Maternal Grandmother No Known Problems Mother No Known Problems Paternal Grandfather No Known Problems Paternal Grandmother Relation Name Status Comments Brother Daughter Father Maternal Grandfather Maternal Grandmother Mother Paternal Grandfather Paternal Grandmother Social History Tobacco Use Types Packs/Day Years Used Date Smoking Tobacco: Never Smokeless Tobacco: Never Personal Safety Answer Date Recorded Getting School Help Needed Not on file 12/23 Comments Unknown Sex and Gender Information Value Date Recorded Sex Assigned at Not on file Legal Sex Female 6:45 PM FILTERER Gender Identity Not on file Sexual Orientation Not on file Obstetrics History Last Filed Vital Signs Vital Sign Reading Time Taken Comments Blood Pressure 119/66 09/14/2021 1:02 PM FILTERER Pulse 62 09/14/2021 1:02 PM FILTERER Temperature - - Respiratory Rate - - Oxygen Saturation - - Inhaled Oxygen Concentration - - Weight 72.1 kg (159 lb) 09/14/2021 1:02 PM FILTERER Height 167.6 cm (5' 6 ) 09/14/2021 1:02 PM FILTERER Body Mass Index 25.66 09/14/2021 1:02 PM FILTERER Plan of Treatment Not on file Insurance [employer] [place] [employer] [place] Member Subscriber Plan / Payer (Ef fective 2003-Present) Name:Samantha Yani Kathryn Relation to Subscriber:Spouse Name:Yudi Singh Date of :1964 (Home) (Work) Address: [employer] [address] [place] [address] Payer ID:[id number] (NAIC) Type: [employer] Address: [address] Care Teams Repack Room Worker Relationship Specialty Start Date End Date Deni Haskins MD PCP - General Internal Medicine 08/24/21
--- OUTSIDE RECORDS SUMMARY | 2024-12-31 18:38 | XMS_ITS | Clinical Summary ---
Author Organization [facility] Address [address] [place] [address] Care Team Providers Care Liquid Waste Treatment Plant Operator Name Role Phone Unavailable Primary Care Provider Unavailabl e Social History Tobacco Use Types Packs/Day Years Used Date Smoking Tobacco: Never Assessed Comments Unknown Sex and Gender Information Value Date Recorded Sex Assigned at Not on file Legal Sex Female 12:00 PM PACK MULE WORKER Gender Identity Not on file Sexual Orientation Not on file Plan of Treatment Health Maintenance Due Date Last Done Comments Hepatitis C Virus (HCV) Screening 1966 TdaP Immunization 1966 Hepatitis B Immunization (1 of 3 - 19+ 3-dose series) 1985 Pap Smear 1987 Cervical Cancer Screening (CCS) 1996 HPV/Cotest 1996 Colonoscopy 2011 Colorectal Cancer Screening 2011 Cologuard 2016 Immunochemical Fecal Occult Blood 2016 Mammogram 2016 Pneumococcal Immunization (5 0+ years) (1 of 1 - PCV) 2016 Zoster Immunization (1 of 2) 2016 Influenza Immunization (#1) 2024 SARS-COV-2 Immunization ( - season) 2024 Respiratory Syncytial Virus (RSV) Immunization (Adult) (1 - 1-dose 75+ series) 2041 Meningococcal Immunization (ACWY) Aged Out No longer eligible based on patient's age to complete this topic Pneumococcal Immunization Combined Aged Out No longer eligible based on patient's age to complete this topic Rotavirus Immunization Aged Out No lo nger eligible based on patient's age to complete this topic
--- OUTSIDE RECORDS SUMMARY | 2024-12-31 18:38 | XMS_ITS | Referral Summary ---
Author Organization [facility] Address [address] [place] [address] Care Team Providers Care Play Leader Name Role Phone Deni Haskins MD Primary Care Provider [phone] Allergies Active Allergy Reactions Criticality Noted Date Comments Codeine Stomach upset Low 07/20/2010 Medications levothyroxine (SYNTHROID) 75 mcg tablet Take 1 tablet by mouth daily 07/02/2021 Active Active Problems Problem Noted Date Diagnosed Date Acquired hypothyroidism 08/25/2021 Assessment & Plan (09/15/2021 1:17 PM PEANUT VENDOR): Followed by her PCP and controlled on Synthroid. Assessment & Plan (08/25/2021 10:07 AM PEANUT VENDOR): Followed by her PCP and currently on Synthroid. Pelvic congestion syndrome 08/25/2021 Assessment & Plan (09/15/2021 1:17 PM PEANUT VENDOR): Patient does not have any evidence of pelvic congestion syndrome on CT. Assessment & Plan (08/25/2021 10:07 AM PEANUT VENDOR): Patient possibly has pelvic congestion syndrome with vulvar varicosities and the bleeding varix. Plan is for CT venogram of the abdomen and pelvis to determine if she has pelvic congestion syndrome. Vulvar varicose veins 08/25/2021 Assessment & Plan (09/15/2021 1:17 PM PEANUT VENDOR): Patient does not have any enlarged volar varicosities at this time. I told her that likely the stitch that had been placed previously ligated the vein. She does not have any other varicosities at this time that need to be sclerosed. Assessment & Plan (08/25/2021 9:59 AM PEANUT VENDOR): Patient does have all varicose veins as [...] Immunization Administration Dates Next Due Tdap 04/13/2021 Social History Tobacco Use Types Packs/Day Years Used Date Smoking Tobacco: Never Smokeless Tobacco: Never Personal Safety Answer Date Recorded Getting School Help Needed Not on file 12/23 Comments Unknown Sex and Gender Information Value Date Recorded Sex Assigned at Not on file Legal Sex Female 6:45 PM PEANUT VENDOR Gender Identity Not on file Sexual Orientation Not on file Last Filed Vital Signs Vital Sign Reading Time Taken Comments Blood Pressure 119/66 09/14/2021 1:02 PM PEANUT VENDOR Pulse 62 09/14/2021 1:02 PM PEANUT VENDOR Temperature - - Respiratory Rate - - Oxygen Saturation - - Inhaled Oxygen Concentration - - Weight 72.1 kg (159 lb) 09/14/2021 1:02 PM PEANUT VENDOR Height 167.6 cm (5' 6 ) 09/14/2021 1:02 PM PEANUT VENDOR Body Mass Index 25.66 09/14/2021 1:02 PM PEANUT VENDOR Plan of Treatment [place] [address] [employer] [place] [employer] [facility] [place] Care Teams Play Leader Relationship Specialty Start Date End Date Deni Haskins MD PCP - General Internal Medicine 08/24/21
--- OUTSIDE RECORDS SUMMARY | 2024-12-31 18:38 | XMS_ITS | Clinical Summary ---
Author Organization [facility] bluebird bio Address [address] [place] [address] Care Team Providers Care Welt Insole Channeler Name Role Phone Unavailable Primary Care Provider Unavailabl e Source Comments [facility],non-owned Affiliates and Associated Physician Practices is amultiple site organization consisting of ambulatory clinics and hospital sitesin [place], [place], [place] and [place]. This disclosure is being madepursuant to the Care Everywhere program and may not contain all information available regarding this patient. Last updated 18.[facility] Allergies Active Allergy Reactions Criticality Noted Date Comments Codeine 07/20/2010 Medications * Be aware that medications may not be up to date on this document. Alwaysverify current medications with the patient. Medication Sig Dispensed Refills Start Date End Date Status levothyroxine (Synthroid) 100 MCG tablet Take 1 (one) tablet by mouth once daily 06/02/2022 Active Zepbound 5 MG/0.5ML injection Inject 5 (five) mg subcutaneously every 7 days 11/25/2024 Active triamcinolone acetonide (Kenalog) 0.1 % ointment Apply to affected area 2 times daily 60 g 2 12/19/2024 Active Active Problems Problem Noted Date Diagnosed Date Screening for condition 01/08/2019 Overview (01/08/2019): 01/07/2019: NOELLE BIRADS-1 Encounters Date Type Department Care Team Description 12/19/2024 1:00 PM CDT Office Visit [facility] - 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 [address] [place] [address], [address] [place] [id number] Jonelle Braga MD Well woman exam with routine gynecological exam (Primary Dx); Visit for screening mammogram 12/19/2024 Travel from Last 3 Months Social History Tobacco Use Types Packs/Day Years Used Date Smoking Tobacco: Never Smokeless Tobacco: Never Tobacco Cessation:Counseling Given: Not Answered Alcohol Use Standard Drinks/Week Comments No 0 (1 standard drink = 0.6 oz pur e alcohol) Sex and Gender Information Value Date Recorded Sex Assigned at Not on file Gender Identity Not on file Sexual Orientation Not on file Last Filed Vital Signs Vital Sign Reading Time Taken Comments Blood Pressure 124/72 12/19/2024 1:03 PM CDT Pulse 70 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 Temperature - - Respiratory Rate - - Oxygen Saturation - - Inhaled Oxygen Concentration - - Weight 96.4 kg (212 lb 9.6 oz) 12/19/2024 1:03 P M CDT Height 167.6 cm (5' 6 ) 06/22/2020 1:02 PM CDT Body Mass Index 34.31 06/22/2020 1:02 PM CDT Plan of Treatment Health Maintenance Due Date Last Done Comments COLOGUARD (AGES 45-75) - COLON CA SCREENING 1966 COLON MONITORING 1966 COLONOSCOPY - COLON CA SCREENING 1966 CT COLONOGRAPHY - COLON CA SCREENING 1966 Colorectal Cancer Screening 1966 FIT - COLON CA SCREENING 1966 FLEX SIG - COLON CA SCREENING 1966 LIPID TESTING 1966 HIV SCREENING 1981 HEPATITIS C SCREENING 04/01/1984 DTAP/TDAP/TD VACCINES (1 - Tdap) 1985 HEPATITIS B VACCINE (1 of 3 - 19+ 3-dose series) 1985 PNEUMOCOCCAL VACCINE 50+ (1 of 1 - PCV) 2016 ZOSTER VACCINE (1 of 2) 2016 COVID-19 VACCINE (3 - 2023- season) 2024 12/29/2020, 12/08/2020 INFLUENZA VACCINE (#1) 2024 DEPRESSION SCREENING 10/09/2024 MAMMOGRAM 12/29/2025 12/30/2023, 02/2 10/2022, 08/11/2020, Additional history exists PAP with HPV 12/19/2029 12/19/2024, 0304/2024, 07/13/2022, Additional history exists HIB VACCINE Aged Out No longer eligi ble based on patient's age to complete this topic HPV VACCINE Aged Out No longer eligi ble based on patient's age to complete this topic MENINGOCOCCAL (Group B) VACCINE SHARED DECISION-MAKING Aged Out No longer eligible based on patient's age to complete this topic MENINGOCOCCAL GROUPS A/C/Y/W VACCINE Aged Out No longer eligible based on patient's age to complete this topic Procedures Procedure Name Priority Date/Time Associated Diagnosis Comments PAP IG LB +HPV APTIMA REFLEX 16,18/45 Routine 12/19/2024 1:11 PM CDT Well woman exam with routine gynecological exam MAMMO BILAT SCREENING W LULU Routine 12/30/2023 Visit for screening mammogram from Last 3 Months or Most Recently Relevant to Health Maintenance Results * PAP IG LB +HPV APTIMA REFLEX 16,18/45 (12/19/2024 1:11 PM CDT) Diagnosis Comment [facility] ACCOUNT BILL Comment:NEGATIVE FOR INTRAEP ITHELIAL LESION OR MALIGNANCY. Specimen Adequacy Comment [facility] ACCOUNT BILL Comment: Satisfactory for evaluation. Endocervical and/or squamous metaplastic cells (endocervical component) are present. Clinician Provided ICD10 Comment [facility] ACCOUNT BILL Comment:Z01.419 Performed by Comment [facility] ACCOUNT BILL Comment:Linda Penn, Cytot echnologist (ASCP) Comment . [facility] ACCOUNT BILL Note Comment [facility] ACCOUNT BILL Comment: The Pap smear is a screening test designed to aid in the detection of premalignant and malignant conditions of the uterine cervix. It is not a diagnostic procedure and should not be used as the sole means of detecting cervical cancer. Both false-positive and false-negative reports do occur. IGLBP CPT Code Automation Comment [facility] ACCOUNT BILL Comment: This liquid based ThinPrep(R) pap test was screened with the use of an image guided system. Human papillomavirus Aptima Negative Negative [facility] ACCOUNT BILL Comment: This nucleic acid amplification test detects fourteen high-risk HPV types (16,18,31,33,35,39,45,51,52,56,58,59,66,68) without differentiation. HPV Genotype Reflexed Comment [facility] ACCOUNT BILL Comment:Criteria not met, HP V Genotype not performed. ENTIRE ENDOCERVIX / Unknown 12/19/2024 1:11 PM CDT 12/19/2024 Comment:Endocrvx Release to p Narrative [facility] ACCOUNT BILL - 12/23/2024 5:09 PM CDT Performed at: 01 - [facility] [address] [id number] Hydroelectric Machinery Mechanic: Araseli Staley MD, Phone: [phone] Performed at: 02 - [facility] [place] [address] [place], [place] [id number] Hydroelectric Machinery Mechanic: Araseli Staley MD, Phone: [phone] Specimen Comment: [id number] Specimen Comment: Other..............Post Menopausal Specimen Comment: No. of containers..01 ThinPrep Vial Jonelle Braga MD LAB - PATHOLOGY/CYTO LOGY ORDERABLES [facility] ACCOUNT BILL [address] [place] [address] * MAMMO BILAT SCREENING W LULU (12/30/2023) Anatomical Region Laterality Modality Breast Bilateral Mammography 12/30/2023 Jonelle Braga MD MAMMO ORDERABLES from Last 3 Months or Most Recently Relevant to Health Maintenance Samantha Yani Personal/Famil y Self 1965 [facility] [place] [address] Samantha Yani Personal/Famil y Self 1965 [facility] [place] [address]
--- OUTSIDE RECORDS SUMMARY | 2024-12-31 18:38 | XMS_ITS | Data Portability ---
Author Organization [facility], [facility] Address [address] [address] Care Team Providers Care Kaiwhakahaere Name Role Phone DEDE PEDERSNO Primary Care Provider Unavaila ble Assessment No assessment recorded. Plan of Treatment Reminders Order Date Submit Date Provider Last Modified By Organization Details Last Modified Time Details Appointments None recorded. Lab None recorded. Referral None recorded. Procedures None recorded. Surgeries None recorded. Imaging XR, knee - room 14 2017 018 [email or web address] Not available 8 14:03:51 MRI, knee, w/o contrast - ACL 2017 018 [place] [facility] [place], [address], [place], [address], 8 06:59:00 US, lower extremity, nonvascular 2017 018 [email or web address] Not available 8 14:03:52 Medication Orders diclofenac sodium 75 mg tablet,octavio yed release 2017 018 [email or web address] [id number], [facility] [address], [place], [address], 8 12:48:36 Patient TargetsNo targets recorded. Patient Instructions Encounter Date Encounter Id Patient Instructions Last Modified By Organization Details Last Modified Time 05/23/2018 [id number] knee pain or injury: care instructions [email or web address] Not available 05/23/2018 12:48:36 Reason for Referral None Reported. Results Created Date Observation Date Name Description Value Unit Range Abnormal Flag Note LastModifiedBy Organization Detail LastModifiedTime 05/25/20 18 05/24/2018 MRI, knee, w/o contr ast No observ ation record ed. [email or web address] [facility] [place] [address], [place], [address], 05/28/2018 14:24:34 Result Notes None recorded. Problems No Known Problems Procedures Surgical History None recorded. Imaging Results Imaging Date Name Status LastModified by Organiz ation Details LastModified Time 05/24/2018 MRI, knee, w/o contrast completed [email or web address] [facility] [place] [address], [place], [address], 05/28/2018 14:24:34 Procedure Notes None recorded. Medical Equipment None Reported. Allergies Allergen ID Allergen Name Allergen Category Reaction Reaction Severity Criticality Documentation Date Start Date Code Code System Note Provider Name and Address Organization Details Recorded Time 88916 codeine medicatio n nausea Not available Not available 05/23/2018 2670 [facility]Norm Taj [email or web address] 8 10:41:39 Medications Name Sig Start Date Stop Date Status Note LastModified by Organization Details LastModified Time acyclovir 5 % topical ointment 05/23 completed Not Available Not Available Not Available diclofenac sodium 75 mg tablet,delay ed release Take 1 tablet twice a day by oral route. 2017 active [facility] [place] Not Available Not Available Not Available acyclovir 200 mg capsule 05/23 completed Not Available Not Available Not Available Synthroid 112 mcg tablet active Not Available Not Available Not Available Vitals Date Recorded Body height Body mass index (BMI) Body weight Heart rate Systolic blood pressure Diastolic blood pressure Provider Name and Address Organization Details Last Updated DateTime 8 167.64 cm 40.4 kg/m2 856331. 09 g 77 /min 135 mm[Hg] 81 mm[Hg] Taj Ashton [employer] 8 10:40:45 Social History Question Answer Notes LastModified by Organizat ion Details LastModified Time Tobacco Smoking Status Never Smoker Taj feng [employer] 05/23/2018 10:26:35 What Is Your Level Of Alcohol Consumption? None Information not available 05/23/2018 Marital Status Single Informatio n not available 05/23/2018 What Was The Date Of Your Most Recent Tobacco Screening? 05/23/2018 Information not available 05/02/2019 How Much Tobacco Do You Smoke? No Information not available 05/23/2018 What Types Of Sporting Activities Do You Participate In? Running Information not available 05/23/2018 Sex: Unknown Functional Status Question Answer Note LastModified by Organization D etails LastModified Time What is your exercise level? Heavy Information not available 05/23/2018 Mental Status None recorded. Family History Nothing Reported. Medical History Condition Response HIV or AIDS N Coronary Artery Disease N Gout N Kidney Stones N Hyperthyroidism N Head Trauma/Injury Y Hernia N Hypothyroidism N Depression N COPD N Blood Clots N Lung Disease N Pacemaker N Anxiety Disorder N Arthritis N Cancer N Stroke N Neck Injury N Leg or Foot Ulcers N High Cholesterol N Liver Disease N Rheumatoid Arthritis N Headaches N Fibromyalgia N Kidney Disease N Heart Problems N Migraines N Thyroid Problems Y Anemia N Multiple Sclerosis N Tendon Tear N Ulcers N Heart Attack (NC) N Diabetes N Bleeding Disorder N Seizures/Epilepsy N Tuberculosis N Urinary Tract Infection N Back Problems N Diverticulitis N Asthma N Lupus N Peripheral Vascular Disease N Sleep Disorder N GERD/Reflux N Hepatitis N Aneurysm N Heart Disease N Pulmonary Embolism N Hypertension N Osteoporosis N Gynecological HistoryNo gynecological history recorded. Obstetrics History GPAL:G 0 P 0 0 0 0 Past Encounters Encounter ID Performer Location Encounter Start Date Encounter Closed Date Diagnosis/Indication Diagnosis SNOMED-CT Code Diagnosis ICD10 Code Diagnosis Note [id number] [facility] [address] [facility] [place] [address] 05/23/2018 10:05:21 05/23/2018 14:03:51 Knee pain [id number] M25.562 Health Concerns Section Related Observation LastModified by Organization Detai ls LastModified Time None Recorded Concern Status LastModified by Organization Details LastModified Time None Recorded Advance Directives Directive None Recorded Payers Encounter Date Sequence Insurance Name Policy Number Policy Wetzel Covered Member ID Wetzel Member ID Guarantor Name 05/23/2018 2 [place] [employer] [id number] Yudi Scrum [id number] Yani Otto Scrum 05/23/2018 1 [facility]: ([place]) [id number] Yani Otto Scrum [id number] Yani Otto Scrum OBGyn Episode No OBEpisode recorded.
== END 2024-12-31 16:27 | disposition home or self-care (01) ==
PROVIDERS: PCP Nurse Practitioner Family
DX: Z12.31 Encounter for screening mammogram for malignant neoplasm of breast (principal)
CPT/HCPCS: 77063; 77067